=== PATIENT | male | born 1970 | race Caucasian/White ===

== ENCOUNTER 2019-08-27 18:40 | Emergency (ER) | payer OTHER ==
[~2019-08-27] VITALS: Ht 190.5 cm; Wt 134.5 kg
[2019-08-27 23:09] VITALS: BP 113/52
[2019-08-27] MEDS ORDERED: methylPREDNISolone SOD SUCC 125 MG/2 ML VL IM ONE (23:15)
== END 2019-08-28 00:24 | disposition home or self-care (01) ==
LOC: ER 18:45
DX: S13.9XXA Sprain of joints and ligaments of unspecified parts of neck, initial encounter (principal); M62.838 Other muscle spasm; M54.5 Low back pain; V43.52XA Car driver injured in collision with other type car in traffic accident, initial encounter; Y93.89 Activity, other specified; Y92.488 Other paved roadways as the place of occurrence of the external cause; Y99.8 Other external cause status
CPT/HCPCS: 72040; 72070; 72100; 96372; 99283; J2930

== ENCOUNTER 2021-10-14 11:23 | Emergency (ER) | payer OTHER ==
[~2021-10-14] VITALS: Ht 190.5 cm; Wt 136.1 kg
[2021-10-14 13:31] VITALS: BP 156/78
== END 2021-10-14 13:58 | disposition home or self-care (01) ==
LOC: ER 11:23
DX: U07.1 COVID-19 (principal); M79.10 Myalgia, unspecified site
CPT/HCPCS: 71045